=== PATIENT | female | born 1990 | race Two or more races ===

== ENCOUNTER 2017-12-16 17:47 | Emergency (ER) | payer MEDICARE ==
[~2017-12-16] VITALS: Ht 165.1 cm; Wt 100.4 kg
[2017-12-16 17:48] VITALS: BP 139/83
== END 2017-12-16 19:10 | disposition home or self-care (01) ==
LOC: ED 19:00
DX: S10.93XA Contusion of unspecified part of neck, initial encounter (principal); J45.909 Unspecified asthma, uncomplicated; W22.8XXA Striking against or struck by other objects, initial encounter; Y93.89 Activity, other specified; Y99.8 Other external cause status; Y92.89 Other specified places as the place of occurrence of the external cause
CPT/HCPCS: 72072; 99284

== ENCOUNTER 2020-05-19 13:22 | Emergency (ER) | payer MEDICARE, OTHER ==
[~2020-05-19] VITALS: Ht 165.1 cm; Wt 115.8 kg
--- NOTE | 2020-05-19 14:06 | NUR ---
WINDOWS ADMIN; PT TO ROOM FROM [facility]
--- NOTE | 2020-05-19 14:12 | NUR ---
PT AMBULATORY TO ROOM 35 W/ C/O NAUSEA NO EMESIS AND DIARRHEA SINCE SATURDAY. PT STATES WHEN SHE FEELS THE URGE TO THROW UP SHE LOOKS UP AND BREATHES WHILE FOCUSING ON WHAT IS ABOVE HER AND THAT HELPS PREVENT EMESIS. PT ALSO C/O RUQ ABD TENDERNESS AND STATES HER SX ARE VERY SIMILAR TO WHEN SHE HAD A "HORRIBLE UTI". PT PROVIDED UA SAMPLE. PT RESTING ON GURNEY. NADN. MONITORS APPLIED. WARM BLANKET PROVIDED.
--- NOTE | 2020-05-19 14:22 | NUR ---
[facility] #[phone]
[2020-05-19] MEDS ORDERED: SODIUM CHLORIDE 0.9% 1,000 ML IV ONE (14:37)
[2020-05-19] MEDS ORDERED: SODIUM CHLORIDE FLUSH 10ML SYR IVF ONE (15:00)
[2020-05-19 15:07] LABS: BASOPHILS # (AUTO) 0.06 x10^3/uL (0-0.1); BASOPHILS % (AUTO) 1 % (0-1); EOSINOPHILS # (AUTO) 0.22 x10^3/uL (0-0.4); EOSINOPHILS % (AUTO) 3 % (1-7); LYMPHOCYTES # (AUTO) 3.18 x10^3/uL (1-3.4); LYMPHOCYTES % (AUTO) 36 % (22-44); MD NO; MEAN CORPUSCULAR HEMOGLOBIN 31.2 pg (27.0-34.8); MEAN CORPUSCULAR HGB CONC 33.1 g/dL (32.4-35.8); MEAN CORPUSCULAR VOLUME 94.4 fL (80-100); MEAN PLATELET VOLUME 7.3 fL (7.4-10.4); MONOCYTES # (AUTO) 0.65 x10^3/uL (0.2-0.8); MONOCYTES % (AUTO) 7 % (2-9); NEUTROPHILS # (AUTO) 4.68 x10^3/uL (1.8-6.8); NEUTROPHILS % (AUTO) 53 % (42-75); PLATELET COUNT 384 x10^3/uL (130-400); RED BLOOD COUNT 4.73 x10^6/uL (3.82-5.3); RED CELL DISTRIBUTION WIDTH 13.1 % (9.6-15.2)
[2020-05-19 15:10] LABS: ALANINE AMINOTRANSFERASE 97 U/L (12-78); ALBUMIN 3.6 g/dL (3.4-5.0); ANION GAP 8 mmol/L (5-15); CALCIUM 9.3 mg/dL (8.5-10.1); CHLORIDE 108 mmol/L (98-107); CREATININE 0.64 mg/dL (0.55-1.02)
[2020-05-19 15:14] LABS: ALKALINE PHOSPHATASE 76 U/L (45-117); BILIRUBIN,TOTAL 0.4 mg/dL (0.2-1.0); TOTAL PROTEIN 7.7 g/dL (6.4-8.2)
[2020-05-19 15:14] LABS: MICROSCOPIC NOT IND
--- NOTE | 2020-05-19 15:25 | NUR ---
PT RESTING ON GURNEY. NADN. GARY.
--- NOTE | 2020-05-19 15:38 | NUR ---
PT CHART REVIEWED AND PLACED FOR RECHECK.
[2020-05-19 16:17] VITALS: BP 136/74
--- NOTE | 2020-05-19 16:18 | NUR ---
PT RESTING ON GURNEY. NADN. GARY.
--- NOTE | 2020-05-19 17:10 | NUR ---
Patient given discharge instructions and they have confirmed that they understand the instructions. Patient ambulatory with steady gait.
== END 2020-05-19 17:12 | disposition home or self-care (01) ==
LOC: ED 15:36
DX: R19.7 Diarrhea, unspecified (principal); R10.11 Right upper quadrant pain; R11.0 Nausea; J45.909 Unspecified asthma, uncomplicated
CPT/HCPCS: 36415; 74021; 76700; 80053; 81003; 83690; 84703; 85025; 99285; J7030